=== PATIENT | female | born 1980 | race Caucasian/White ===

== ENCOUNTER 2020-02-16 10:10 | Outpatient (CLI) | payer OTHER ==
[2020-02-16] MEDS ORDERED: ZOLP10TA PO (10:35)
[2020-02-16] MEDS ORDERED: MULT-658 PO (10:50)
[2020-02-16 11:10] LABS: BASOPHILS # (AUTO) 0.07 x10^3/uL (0-0.1); BASOPHILS % (AUTO) 1 % (0-1); EOSINOPHILS # (AUTO) 0.16 x10^3/uL (0-0.4); EOSINOPHILS % (AUTO) 2 % (1-7); LYMPHOCYTES # (AUTO) 1.83 x10^3/uL (1-3.4); LYMPHOCYTES % (AUTO) 17 % (22-44); MD NO; MEAN CORPUSCULAR HEMOGLOBIN 30.1 pg (27.0-34.8); MEAN CORPUSCULAR HGB CONC 32.4 g/dL (32.4-35.8); MEAN CORPUSCULAR VOLUME 93.2 fL (80-100); MEAN PLATELET VOLUME 8.1 fL (7.4-10.4); MONOCYTES # (AUTO) 0.47 x10^3/uL (0.2-0.8); MONOCYTES % (AUTO) 4 % (2-9); NEUTROPHILS # (AUTO) 8.13 x10^3/uL (1.8-6.8); NEUTROPHILS % (AUTO) 76 % (42-75); PLATELET COUNT 285 x10^3/uL (130-400); RED BLOOD COUNT 4.28 x10^6/uL (3.82-5.3); RED CELL DISTRIBUTION WIDTH 13.8 % (9.6-15.2)
== END 2020-02-16 23:59 | disposition home or self-care (01) ==
LOC: STAR 10:10
PROVIDERS: ATTEND Obstetrics & Gynecology
DX: Z01.818 Encounter for other preprocedural examination (principal); Z11.59 Encounter for screening for other viral diseases; N90.7 Vulvar cyst
CPT/HCPCS: 36415; 84703; 85025; U0001

== ENCOUNTER 2020-02-20 12:38 | Day surgery (SDC) | payer OTHER ==
[~2020-02-20] VITALS: Ht 162.6 cm; Wt 69.0 kg
[~2020-02-20 12:38] MED LIST: MULT-658 PO; ZOLP10TA PO
[2020-02-20 13:04] VITALS: BP 104/63
[2020-02-20] MEDS ORDERED: CHLORHEXIDINE 15 ML UDC MM STA (13:09)
[2020-02-20] MEDS ORDERED: LACTATED RINGERS 1,000 ML IV SCH (13:09)
[2020-02-20 13:31] LABS: HCG UR SG 1.021 (1.003-1.030)
[2020-02-20] MEDS ORDERED: MIDAZOLAM 1 MG/ML, 2ML ONE (13:31)
[2020-02-20] MEDS ORDERED: FENTANYL PF 100 MCG/2ML ONE ×2 (13:31→15:59)
[2020-02-20] MEDS ORDERED: SCOPOLAMINE 1MG PATCH TD ONE (14:22)
[2020-02-20] MEDS ORDERED: BUPIVACAINE/PF-EPI 0.25% 1:200K ONE (14:25)
[2020-02-20] MEDS ORDERED: SILVER SULF. CRM 1% , 25GM ONE (14:40)
[2020-02-20] MEDS ORDERED: ONDANSETRON 2MG/ML, 2ML ONE (14:46)
[2020-02-20] MEDS ORDERED: CEFAZOLIN 1,000 MG ONE (14:46)
[2020-02-20] MEDS ORDERED: SUGAMMADEX 200 MG/2 ML IVPush ONE (14:46)
[2020-02-20] MEDS ORDERED: PROPOFOL 10 MG/ML, 20ML ONE (14:46)
[2020-02-20] MEDS ORDERED: ROCURONIUM 10 MG/ML,10ML ONE (14:46)
[2020-02-20] MEDS ORDERED: DEXAMETHASONE 4 MG/ML, 1ML ONE (14:46)
[2020-02-20] MEDS ORDERED: SCOPOLAMINE 1MG PATCH TD SCH (15:00)
[2020-02-20] MEDS ORDERED: HYDROmorphone 1 MG/ML, 1ML INJ IVPush PRN (15:30)
[2020-02-20] MEDS ORDERED: ONDANSETRON 2MG/ML, 2ML IVPush PRN (15:30)
[2020-02-20] MEDS ORDERED: DIPHENHYDRAMINE 50 MG/ML, 1ML IVPush PRN (15:30)
[2020-02-20] MEDS ORDERED: OXYcodone 5 MG/5 ML ORAL.SOL UDC PO PRN (15:30)
[2020-02-20] MEDS ORDERED: DIAZEPAM 5 MG/ML, 2ML IVPush PRN (15:30)
[2020-02-20] MEDS ORDERED: ACETAMINOPHEN 325 MG TABLET PO PRN (15:30)
[2020-02-20] MEDS: FENTANYL PF 100 MCG/2ML IV PRN ×2 (15:57→16:08)
[2020-02-20] MEDS ORDERED: OXYcodone 5 MG/5 ML ORAL.SOL UDC ONE (15:59)
== END 2020-02-20 17:30 | disposition home or self-care (01) ==
LOC: OUT 12:38
PROVIDERS: ATTEND Obstetrics & Gynecology
DX: L72.0 Epidermal cyst (principal); Z88.1 Allergy status to other antibiotic agents; Z88.2 Allergy status to sulfonamides; Z79.899 Other long term (current) drug therapy; Z72.89 Other problems related to lifestyle; Z98.51 Tubal ligation status; Z98.890 Other specified postprocedural states
CPT/HCPCS: 11421; 12041; 81025; 87070; 87075; 87077; 87102; 87147; 87186; 87205; 88305; J0690; J1100; J2250; J2405; J2704; J3010; J7120; 87076